=== PATIENT | male | born 1995 | race Caucasian/White ===

== ENCOUNTER 2016-12-19 22:24 | Emergency (ER) | payer MEDICAID, OTHER ==
[2016-12-19 22:32] VITALS: BP 119/86
[2016-12-20] MEDS: MAG HYDROX/ALUMINUM HYD/SIMETH 30 ML UDC PO ONE (00:29)
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
[2016-12-20] MEDS: LIDOCAINE HCL 20 ML UDC MM ONE (00:30)
== END 2016-12-20 00:34 | disposition home or self-care (01) ==
LOC: ER 22:24
DX: J39.2 Other diseases of pharynx (principal); F17.210 Nicotine dependence, cigarettes, uncomplicated

== ENCOUNTER 2017-07-29 13:47 | Emergency (ER) | payer OTHER ==
[2017-07-29 13:56] VITALS: BP 128/83
[2017-07-29] MEDS ORDERED: AMOX TR/POTASSIUM CLAVULANATE 875 MG TABLET PO ONE (14:10)
[2017-07-29] MEDS ORDERED: KETOROLAC TROMETHAMINE 60 MG/2 ML VIAL IM ONE ×2 (14:17→14:18)
[2017-07-29] MEDS ORDERED: AMOX TR/POTASSIUM CLAVULANATE 875 MG TABLET ONE (14:18)
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
== END 2017-07-29 14:30 | disposition home or self-care (01) ==
LOC: ER 13:47
DX: L03.011 Cellulitis of right finger (principal); Z87.891 Personal history of nicotine dependence